=== PATIENT | male | born 1990 | race African-American/Black ===

== ENCOUNTER 2016-04-22 06:30 | Emergency (ER) | payer MEDICAID ==
[~2016-04-22] VITALS: Ht 190.5 cm; Wt 88.0 kg
[2016-04-22] MEDS ORDERED: LORAZEPAM 0.5MG TABLET PO ONE (07:00)
[2016-04-22 09:37] LABS: *AMPHETAMINES SCREEN URINE PRESUMTIVE POSITIVE (NEGATIVE); *BARBITURATES SCREEN URINE NEGATIVE (NEGATIVE); *BENZODIAZEPINES SCREEN URINE NEGATIVE (NEGATIVE); *COCAINE SCREEN URINE NEGATIVE (NEGATIVE); CANNABINOID URINE SCREEN PRESUMTIVE POSITIVE (NEGATIVE); ECSTASY MDMA SCREEN URINE NEGATIVE (NEGATIVE); METHADONE URINE SCREEN NEGATIVE (NEGATIVE); OPIATES URINE SCREEN NEGATIVE (NEGATIVE); PHENCYCLIDINE URINE SCREEN NEGATIVE (NEGATIVE)
[2016-04-22] MEDS ORDERED: LORAZEPAM 1MG TABLET PO ONE (09:45)
[2016-04-22 13:00] VITALS: BP 122/84
== END 2016-04-22 13:20 | disposition home or self-care (01) ==
LOC: ER 06:32
DX: F41.9 Anxiety disorder, unspecified (principal); F17.200 Nicotine dependence, unspecified, uncomplicated; F12.10 Cannabis abuse, uncomplicated
CPT/HCPCS: 80305; 93005; 99285